=== PATIENT | male | born 1950 | race Caucasian/White ===

== ENCOUNTER → 2020-03-22 | Outpatient (CLI) | payer MEDICARE ==
[~2020-03-22] MED LIST: REGADENOSON 0.4 MG/5 ML PF SYG IVP SCH
== END | disposition home or self-care (01) ==
LOC: SHCH 08:44
PROVIDERS: ATTEND Internal Medicine Cardiovascular Disease
DX: R06.02 Shortness of breath (principal)
CPT/HCPCS: 78452; 93017; 96374; A9500 ×2; J2785

== ENCOUNTER → 2020-05-21 | Outpatient (CLI) | payer MEDICARE ==
[~2020-05-21] MED LIST changes: +IOHEXOL-350 75 ML VIAL IV ONE; -REGADENOSON 0.4 MG/5 ML PF SYG IVP SCH
== END | disposition home or self-care (01) ==
LOC: RAH 08:04
PROVIDERS: ATTEND Internal Medicine Gastroenterology
DX: K57.30 Diverticulosis of large intestine without perforation or abscess without bleeding (principal); I81 Portal vein thrombosis; K80.20 Calculus of gallbladder without cholecystitis without obstruction; R16.1 Splenomegaly, not elsewhere classified; R18.8 Other ascites; R16.0 Hepatomegaly, not elsewhere classified
CPT/HCPCS: 74178; Q9967

== ENCOUNTER 2020-06-11 17:45 | Inpatient (IN) | payer MEDICARE ==
[~2020-06-11] VITALS: Ht 180.3 cm; Wt 89.2 kg
[~2020-06-11 17:45] MED LIST changes: -IOHEXOL-350 75 ML VIAL IV ONE; +OMEG1CAP31 PO; +PINDOLOL PO
[2020-06-11 18:28] LABS: BASOPHILS % (AUTO) 0.4 % (0.0-5.0); EOSINOPHILS % (AUTO) 0.5 % (0.0-8.0); LYMPHOCYTES % (AUTO) 14.6 % (21.0-51.0); MEAN CORPUSCULAR HEMOGLOBIN 31.4 pg (27.0-33.0); MEAN CORPUSCULAR HGB CONC 35.7 g/dL (32.0-36.0); MONOCYTES % (AUTO) 9.8 % (3.0-13.0); NEUTROPHILS % (AUTO) 73.1 % (40.0-77.0); NUCLEATED RED BLOOD CELLS 0.3 % (0.0-0.19); PLATELET COUNT (AUTO) 150 K/uL (130-400); RED BLOOD CELL COUNT(AUTO) 5.57 MIL/uL (4.50-6.20); RED CELL DISTRIBUTION WIDTH 24.1 % (11.0-15.5); WHITE BLOOD COUNT (AUTO) 9.5 K/uL (4.8-10.8)
[2020-06-11 18:40] LABS: INR 2.57 (0.85-1.15); PROTHROMBIN TIME 25.7 SEC (9.6-11.6)
[2020-06-11 18:42] LABS: PARTIAL THROMBOPLASTIN TIME 37.7 SEC (26.3-35.5)
[2020-06-11 18:58] LABS: ALBUMIN 2.2 g/dL (3.5-5.0); CREATININE 1.2 mg/dL (0.5-1.5); POTASSIUM 5.2 mmol/L (3.5-5.1); TOTAL PROTEIN, SERUM 6.3 g/dL (6.0-8.3)
[2020-06-11 19:03] LABS: BILIRUBIN,TOTAL 16.9 mg/dL (0.2-1.0)
[2020-06-11] MEDS ORDERED: KAYEXALATE 15GM/60ML ONE (19:47)
[2020-06-11] MEDS ORDERED: NITROGLYCERIN 0.4 MG SL TAB SL PRN (20:30)
[2020-06-11] MEDS ORDERED: MAG/ALUM/SIMETH 30 ML UDCUP PO PRN (20:30)
[2020-06-11] MEDS ORDERED: ZOLPIDEM TARTRATE 5 MG TAB PO PRN (20:30)
[2020-06-11] MEDS ORDERED: DIPHENHYDRAMINE HCL 25 MG CAPSULE PO PRN (20:30)
[2020-06-11] MEDS ORDERED: LACTULOSE 20 GM/30 ML UDCUP PO PRN (20:30)
[2020-06-11] MEDS ORDERED: MORPHINE 2 MG SYG IV PRN (20:30)
[2020-06-11] MEDS ORDERED: ACETAMINOPHEN 325 MG TAB PO PRN ×2 (20:30)
[2020-06-11] MEDS ORDERED: ONDANSETRON 4MG INJ IV PRN (20:30)
[2020-06-11] MEDS ORDERED: LACTATED RINGERS 1000ML 1,000 ML IV SCH (20:30)
[2020-06-11] MEDS ORDERED: DiphenhydrAMINE HCL 50 MG/ML VIAL IV PRN (20:30)
[2020-06-11] MEDS ORDERED: HYDROMORPHONE 0.5 MG SYG (0.5MG/0.5ML) IV PRN (21:00)
[2020-06-11] MEDS ORDERED: HEPARIN 5,000 UNIT VIAL SQ SCH (21:00)
[2020-06-11] MEDS: FENTANYL 25 MCG/HR PATCH TD SCH (21:00)
[2020-06-11] MEDS ORDERED: ZOSYN 3.375GM+NS 50ML 50 ML IV ONE (22:37)
[2020-06-11] MEDS ORDERED: FENTANYL 25 MCG/HR PATCH TD ONE (22:37)
[2020-06-11] MEDS ORDERED: LACTATED RINGERS 1000ML 1,000 ML IV ONE ×2 (22:38→23:48)
[2020-06-11] MEDS ORDERED: FAMOTIDINE 20MG VIAL IV ONE (22:39)
[2020-06-12 00:14] LABS: ALBUMIN 2.1 g/dL (3.5-5.0); CREATININE 1.3 mg/dL (0.5-1.5); POTASSIUM 5.2 mmol/L (3.5-5.1)
[2020-06-12 00:25] LABS: BILIRUBIN,TOTAL 16.1 mg/dL (0.2-1.0)
[2020-06-12 07:58] LABS: HEMATOCRIT 46.8 % (42-54); MEAN CORPUSCULAR HEMOGLOBIN 31.5 pg (27.0-33.0); MEAN CORPUSCULAR HGB CONC 35.9 g/dL (32.0-36.0); MEAN CORPUSCULAR VOLUME 87.6 fL (79-99); NUCLEATED RED BLOOD CELLS 1.8 % (0.0-0.19); RED BLOOD CELL COUNT(AUTO) 5.34 MIL/uL (4.50-6.20); RED CELL DISTRIBUTION WIDTH 24.2 % (11.0-15.5); WHITE BLOOD COUNT (AUTO) 5.5 K/uL (4.8-10.8)
[2020-06-12 08:32] LABS: CREATININE 1.3 mg/dL (0.5-1.5); POTASSIUM 5.2 mmol/L (3.5-5.1); TOTAL PROTEIN, SERUM 5.8 g/dL (6.0-8.3)
[2020-06-12 08:41] LABS: BILIRUBIN,TOTAL 16.5 mg/dL (0.2-1.0)
[2020-06-12] MEDS ORDERED: HEPARIN 5,000 UNIT VIAL ONE (08:48)
[2020-06-12] MEDS ORDERED: ZOSYN 3.375GM+NS 50ML 50 ML IV ONE ×2 (08:49→16:43)
[2020-06-12] MEDS ORDERED: FAMOTIDINE 20MG VIAL IV ONE (08:49)
[2020-06-12] MEDS ORDERED: LACTATED RINGERS 1000ML 1,000 ML IV ONE ×2 (08:51→20:58)
[2020-06-12 13:37] LABS: INR 3.97 (0.85-1.15); PROTHROMBIN TIME 38.2 SEC (9.6-11.6)
[2020-06-12] MEDS ORDERED: GADODIAMIDE 10 MMOL/20 ML VIAL IV ONE (14:08)
[2020-06-12] MEDS ORDERED: PHYTONADIONE 10 MG/1 ML AMP SQ SCH (15:15)
[2020-06-12 16:29] LABS: APPEARANCE,URINE SL CLOUDY (CLEAR); BILIRUBIN,URINE LARGE (NEGATIVE); GLUCOSE, URINE (UA) 100 mg/dL (NEGATIVE); KETONES,URINE NEGATIVE (NEGATIVE); LEUKOCYTE ESTERASE ,URINE NEGATIVE (NEGATIVE); NITRATE,URINE NEGATIVE (NEGATIVE); OCCULT BLOOD,URINE TRACE-LYSED (NEGATIVE); PROTEIN,URINE 30 mg/dL (NEGATIVE)
[2020-06-12 16:34] LABS: COLOR,URINE BROWN (YELLOW)
[2020-06-12 16:37] LABS: BACTERIA,URINE Moderate /HPF (None Seen); MUCUS,URINE Few LPF (None Seen); SQUAMOUS EPITHELIAL CELL,UR Moderate /HPF (0-2)
[2020-06-12] MEDS ORDERED: PHYTONADIONE 10 MG/1 ML AMP ONE (16:43)
[2020-06-12 20:04] VITALS: BP 110/59
[2020-06-12] MEDS: FAMOTIDINE 20MG VIAL IV SCH (21:06)
[2020-06-12] MEDS: ZOSYN 3.375GM+NS 50ML 50 ML IV SCH (21:06)
[2020-06-13] VITALS (14 sets, daily range): BP systolic 63–119; BP diastolic 33–93
[2020-06-13] MEDS: ZOSYN 3.375GM+NS 50ML 50 ML IV SCH ×5 (04:45→20:34)
[2020-06-13 05:09] LABS: BASOPHILS % (AUTO) 0.4 % (0.0-5.0); EOSINOPHILS % (AUTO) 0.1 % (0.0-8.0); HEMATOCRIT 46.7 % (42-54); LYMPHOCYTES % (AUTO) 11.8 % (21.0-51.0); MEAN CORPUSCULAR HEMOGLOBIN 31.1 pg (27.0-33.0); MEAN CORPUSCULAR HGB CONC 34.3 g/dL (32.0-36.0); MEAN CORPUSCULAR VOLUME 90.7 fL (79-99); NEUTROPHILS % (AUTO) 76.1 % (40.0-77.0); NUCLEATED RED BLOOD CELLS 1.7 % (0.0-0.19); PLATELET COUNT (AUTO) 158 K/uL (130-400); RED BLOOD CELL COUNT(AUTO) 5.15 MIL/uL (4.50-6.20); RED CELL DISTRIBUTION WIDTH 25.6 % (11.0-15.5); WHITE BLOOD COUNT (AUTO) 12.6 K/uL (4.8-10.8)
[2020-06-13 05:26] LABS: ALBUMIN 1.8 g/dL (3.5-5.0); CREATININE 2.7 mg/dL (0.5-1.5); TOTAL PROTEIN, SERUM 5.4 g/dL (6.0-8.3)
[2020-06-13 05:32] LABS: BILIRUBIN,TOTAL 17.6 mg/dL (0.2-1.0)
[2020-06-13] MEDS ORDERED: SODIUM BICARB 50MEQ 50ML VIAL IV SCH (05:45)
[2020-06-13] MEDS ORDERED: SODIUM BICARB 50MEQ 50ML VIAL 50 ML ONE (06:21)
[2020-06-13] MEDS ORDERED: DEXTROSE 50%-WATER 50 ML DISP.SYRIN IV ONE (06:22)
[2020-06-13 06:23] LABS: PARTIAL THROMBOPLASTIN TIME 50.5 SEC (26.3-35.5)
[2020-06-13] MEDS ORDERED: KAYEXALATE 15GM/60ML ONE (06:23)
[2020-06-13] MEDS ORDERED: FUROSEMIDE 20MG VIAL ONE (06:24)
[2020-06-13] MEDS: FUROSEMIDE 20MG VIAL IV SCH (06:27)
[2020-06-13 06:28] LABS: PROTHROMBIN TIME 60.9 SEC (9.6-11.6)
[2020-06-13] MEDS: DEXTROSE 50%-WATER 50 ML DISP.SYRIN IV SCH ×2 (06:28→11:35)
[2020-06-13 06:29] LABS: INR 6.64 (0.85-1.15)
[2020-06-13] MEDS: KAYEXALATE 15GM/60ML PO SCH (06:34)
[2020-06-13] MEDS: CACL 1GM SYG IVP SCH (06:42)
[2020-06-13 06:53] LABS: ABG BASE EXCESS -15.1 mmol/L (-2.0-3.0); ABG HCO3 9.8 mmol/L (21.0-28.0); ABG OXYGEN SATURATION 93.3 % (95.0-99.0); ABG PCO2 22 mmHg (35-48)
[2020-06-13] MEDS: INSULIN HUMULIN R 100 UNIT/ML 3ML SQ SCH (06:58)
[2020-06-13] MEDS: ALBUTEROL 0.083% 2.5 MG/3 ML INH IH SCH (07:26)
[2020-06-13] MEDS ORDERED: PHYTONADIONE 10 MG/1 ML AMP SQ SCH (09:00)
[2020-06-13] MEDS: CHOLESTYRAMINE PACKET 4 GM PACKET PO SCH ×3 (09:34→21:54)
[2020-06-13] MEDS: FAMOTIDINE 20MG VIAL IV SCH ×2 (09:36→20:34)
[2020-06-13] MEDS: SODIUM BICARB 8.4% 50ML SYRING 150 MEQ in DEXTROSE 5%-WATER 1,000 ML IVP SCH ×2 (09:45→21:54)
[2020-06-13] MEDS ORDERED: MIDODRINE HCL 5 MG TABLET PO SCH (09:45)
[2020-06-13] MEDS ORDERED: KAYEXALATE 15GM/60ML PO SCH ×2 (09:45→13:30)
[2020-06-13] MEDS ORDERED: SODIUM BICARB 8.4% 50ML SYRING 150 MEQ in DEXTROSE 5%-WATER 1,000 ML IV SCH (09:45)
[2020-06-13 10:16] LABS: ALBUMIN 1.8 g/dL (3.5-5.0); TOTAL PROTEIN, SERUM 5.4 g/dL (6.0-8.3)
[2020-06-13 10:42] LABS: BILIRUBIN,TOTAL 19.6 mg/dL (0.2-1.0)
[2020-06-13 10:43] LABS: POTASSIUM 6.6 mmol/L (3.5-5.1)
[2020-06-13] MEDS ORDERED: GLUCAGON 1MG KIT 1 MG ML IM PRN (10:45)
[2020-06-13] MEDS ORDERED: DEXTROSE 50%-WATER 50 ML DISP.SYRIN IV PRN (10:45)
[2020-06-13 12:45] LABS: CREATININE 3.1 mg/dL (0.5-1.5); TOTAL PROTEIN, SERUM 5.5 g/dL (6.0-8.3)
[2020-06-13 12:58] LABS: BILIRUBIN,TOTAL 19.8 mg/dL (0.2-1.0); POTASSIUM 6.9 mmol/L (3.5-5.1)
[2020-06-13] MEDS ORDERED: CALCIUM GLUC 1GM/10ML VIAL IV SCH (13:30)
[2020-06-13] MEDS ORDERED: CALCIUM GLUC 1GM 1 GM in 0.9%NACL 100ML 100 ML IV SCH (13:45)
[2020-06-13] MEDS: MIDODRINE HCL 5 MG TABLET PO SCH ×2 (13:48→20:33)
[2020-06-13] MEDS ORDERED: RIFAXIMIN 550 MG TABLET PO SCH ×2 (15:30→21:00)
[2020-06-13] MEDS: LACTULOSE 20 GM/30 ML UDCUP PO SCH ×2 (15:59→20:33)
[2020-06-13 16:05] LABS: ACETAMINOPHEN < 1 mcg/mL (10-29); ALCOHOL, BLOOD < 3 mg/dL (0-10)
[2020-06-13 19:03] LABS: APPEARANCE,URINE CLOUDY (CLEAR); BILIRUBIN,URINE LARGE (NEGATIVE); GLUCOSE, URINE (UA) NEGATIVE (NEGATIVE); KETONES,URINE 5 mg/dL (NEGATIVE); LEUKOCYTE ESTERASE ,URINE NEGATIVE (NEGATIVE); NITRATE,URINE NEGATIVE (NEGATIVE); OCCULT BLOOD,URINE TRACE-INTACT (NEGATIVE); PROTEIN,URINE 30 mg/dL (NEGATIVE)
[2020-06-13 19:08] LABS: CREATININE,URINE RANDOM 96 mg/dL (30-135); SODIUM,URINE RANDOM 16 mmol/l (40-220)
[2020-06-13 19:09] LABS: COLOR,URINE DARK YELLOW (YELLOW)
[2020-06-13 19:13] LABS: AMPHET/METH SCREEN,URINE NEGATIVE (NEGATIVE); BARBITURATE SCREEN, URINE NEGATIVE (NEGATIVE); BENZODIAZEPINES SCREEN,URINE POSITIVE (NEGATIVE); CANNABINOID SCREEN,URINE POSITIVE (NEGATIVE); COCAINE SCREEN,URINE NEGATIVE (NEGATIVE); OPIATE SCREEN,URINE NEGATIVE (NEGATIVE); PHENCYCLIDINE SCREEN,URINE NEGATIVE (NEGATIVE)
[2020-06-13 19:25] LABS: BACTERIA,URINE Moderate /HPF (None Seen)
[2020-06-13 19:30] LABS: SQUAMOUS EPITHELIAL CELL,UR Few /HPF (0-2)
[2020-06-13] MEDS: FENTANYL 25 MCG/HR PATCH TD SCH (20:34)
[2020-06-13] MEDS ORDERED: NOREPINEPHRIN 4MG/NS 250ML 250 ML IV ONE (22:49)
[2020-06-14] MEDS ORDERED: MORPHINE 4 MG SYG ONE (00:03)
[2020-06-14] MEDS ORDERED: HYDROMORPHONE 0.5 MG SYG (0.5MG/0.5ML) ONE (00:07)
[2020-06-14] MEDS ORDERED: HYDROMORPHONE 0.5 MG SYG (0.5MG/0.5ML) IVP PRN (00:15)
[2020-06-14] MEDS ORDERED: PHARMACY COMMUNICATION MISC SCH (00:15)
[2020-06-14] MEDS: ZOSYN 3.375GM+NS 50ML 50 ML IV SCH ×2 (00:47→04:45)
[2020-06-14 00:55] VITALS: BP 107/68
[2020-06-14] MEDS ORDERED: NOREPINEPHRIN 4MG/NS 250ML 250 ML IV ONE (01:13)
[2020-06-14 01:24] VITALS: BP 70/33
[2020-06-14] MEDS ORDERED: MORPHINE 2 MG SYG IVP PRN (01:45)
[2020-06-14] MEDS: MORPHINE 2 MG SYG IV PRN ×2 (01:51→06:02)
[2020-06-14] MEDS: INSULIN HUMULIN R 100 UNIT/ML 3ML SQ SCH (05:45)
[2020-06-14] MEDS: CACL 1GM SYG IVP SCH (05:45)
[2020-06-14] MEDS: ALBUTEROL 0.083% 2.5 MG/3 ML INH IH SCH (05:45)
[2020-06-14] MEDS: FUROSEMIDE 20MG VIAL IV SCH (05:45)
[2020-06-14] MEDS: KAYEXALATE 15GM/60ML PO SCH (05:45)
== END 2020-06-14 03:31 | disposition expired | DRG 441 ==
LOC: EDH 17:45 → EDHIP 20:30 → 3BH 06-12 17:27 → 2DH 06-13 12:05
PROVIDERS: ADMIT Family Medicine; ATTEND Family Medicine
PROC: 30233K1 Transfusion of Nonautologous Frozen Plasma into Peripheral Vein, Percutaneous Approach (ICD-10-PCS; principal; 2020-06-13)
DX: K72.00 Acute and subacute hepatic failure without coma (principal); I81 Portal vein thrombosis; K76.7 Hepatorenal syndrome; B17.9 Acute viral hepatitis, unspecified; C22.0 Liver cell carcinoma; D68.4 Acquired coagulation factor deficiency; E87.1 Hypo-osmolality and hyponatremia; E87.2 Acidosis; N17.9 Acute kidney failure, unspecified; R18.8 Other ascites; K74.60 Unspecified cirrhosis of liver; K64.9 Unspecified hemorrhoids; R79.89 Other specified abnormal findings of blood chemistry; E87.5 Hyperkalemia; E87.70 Fluid overload, unspecified; I10 Essential (primary) hypertension; K72.10 Chronic hepatic failure without coma; Z66 Do not resuscitate; Z85.05 Personal history of malignant neoplasm of liver; F10.10 Alcohol abuse, uncomplicated; Z20.822 Contact with and (suspected) exposure to COVID-19
CPT/HCPCS: 36415; 36430; 36600; 71045; 71250; 74176; 74183; 76705; 80053; 80305; 81001; 82140; 82435; 82550; 82570; 82803; 82947; 82948; 83605; 83690; 84100; 84132; 84295; 84300; 84484; 85018; 85025; 85027; 85610; 85730; 86850; 86900; 86901; 86927; 87040; 87088; 87426; 93005; 94640; A9579; G0378; J0610; J1170; J1644; J1815; J1940; J2270; J2543; J3430; J3490; J7070; J7120; P9017; Q0163; U0003